=== PATIENT | male | born 1960 | race Caucasian/White ===

== ENCOUNTER → 2023-05-08 07:18 | Outpatient (CLI) | payer OTHER, SELFPAY ==
[2023-05-08 08:51] LABS: Alanine Aminotransferase 29 IU/L (<50); Albumin 4.1 g/dL (3.5-5.0); Albumin Globulin Ratio 1.6 (1.0-2.8); Alkaline Phosphatase 54 U/L (38-126); Aspartate Aminotransferase 32 IU/L (17-59); BUN Creatinine Ratio 20.3 (6-22); Bilirubin Total 1.2 mg/dL (0.2-1.3); Blood Urea Nitrogen 16 mg/dL (9-20); Calcium 9.1 mg/dL (8.4-10.2); Carbon Dioxide 28 mmol/L (22-32); Chloride 101 mmol/L (98-107); Cholesterol 172 mg/dL (140-199); Estimated Glomerular Filt Rate > 60 mL/min (>60); Globulin 2.6 g/dL (1.7-4.1); Glucose 100 mg/dL (80-110); HDL Cholesterol 43 mg/dL (40-60); HEMOLYSIS < 15 (0-50); LDL Cholesterol Calculated 114 mg/dL (<100); Potassium 4.1 mmol/L (3.4-5.1); Sodium 136 mmol/L (137-145); Total Protein 6.7 g/dL (6.3-8.2); Triglycerides 75 mg/dL (35-150)
== END ==
PROVIDERS: PCP Nurse Practitioner; Referring Provider Family Medicine; Visit Provider Family Medicine
DX: E78.5 Hyperlipidemia, unspecified (principal); R73.01 Impaired fasting glucose
CPT/HCPCS: 36415; 80053; 80061

== ENCOUNTER → 2023-06-12 11:25 | Outpatient (CLI) | payer OTHER, SELFPAY ==
[2023-06-13 14:39] LABS: Fecal Immunochemical Test Negative (Negative)
== END ==
PROVIDERS: PCP Nurse Practitioner; Referring Provider Nurse Practitioner; Visit Provider Nurse Practitioner
DX: Z12.11 Encounter for screening for malignant neoplasm of colon (principal)
CPT/HCPCS: 82274

== ENCOUNTER → 2024-04-27 09:17 | Outpatient (CLI) | payer OTHER, SELFPAY ==
[2024-04-27 10:12] LABS: Add Manual Diff / Slide Review NO; Basophils Absolute Auto 0 /uL (0-100); Basophils Percent Auto 0.7 % (0-2); Eosinophils Absolute Auto 100 /uL (0-450); Eosinophils Percent Auto 3.4 % (2-4); Hematocrit 44.7 % (41-53); Hemoglobin 15.5 g/dL (13.5-17.5); Lymphocytes Absolute Auto 1100 /uL (1100-4500); Lymphocytes Percent Auto 30.3 % (25-40); Mean Corpuscular HGB Conc 34.6 % (30-36); Mean Corpuscular Hemoglobin 31.3 PG (26-34); Mean Corpuscular Volume 90.4 fL (80-100); Monocytes Absolute Auto 300 /uL (0-900); Monocytes Percent Auto 9.5 % (3-14); Neutrophils Absolute Auto 2000 /uL (1500-7000); Neutrophils Percent Auto 56.1 % (50-75); Platelet Count 166 X10^3/uL (150-400); Red Blood Cell Count 4.94 X10^6/uL (4.5-5.9); Red Cell Distribution Width 13.1 % (11.6-14.8); White Blood Cell Count 3.5 X10^3/uL (4.5-11.0)
[2024-04-27 10:29] LABS: HEMOLYSIS < 15 (0-50)
[2024-04-27 10:35] LABS: Alanine Aminotransferase 46 IU/L (<50); Albumin 4.2 g/dL (3.5-5.0); Albumin Globulin Ratio 1.4 (1.0-2.8); Alkaline Phosphatase 64 U/L (38-126); Aspartate Aminotransferase 63 IU/L (17-59); BUN Creatinine Ratio 18.1 (6-22); Bilirubin Total 2.1 mg/dL (0.2-1.3); Blood Urea Nitrogen 15 mg/dL (9-20); Calcium 9.4 mg/dL (8.4-10.2); Carbon Dioxide 29 mmol/L (22-32); Chloride 102 mmol/L (98-107); Cholesterol 173 mg/dL (140-199); Estimated Glomerular Filt Rate > 60 mL/min (>60); Globulin 2.9 g/dL (1.7-4.1); Glucose 104 mg/dL (80-110); HDL Cholesterol 53 mg/dL (40-60); LDL Cholesterol Calculated 106 mg/dL (<100); Sodium 136 mmol/L (137-145); Total Protein 7.1 g/dL (6.3-8.2); Triglycerides 71 mg/dL (35-150)
[2024-04-27 11:03] LABS: TSH w/ Reflex to FT4 2.46 uIU/mL (0.47-4.68)
[2024-04-27 11:25] LABS: HIV 1 & 2 Ab/Ag 4th Gen Combo NEGATIVE (NEGATIVE); Hep C Virus Ab w/Reflex Quant NEGATIVE s/c (NEGATIVE)
[2024-04-27 18:11] LABS: Prostate Specific Antigen Scrn 0.555 ng/mL (0.1-4.0)
== END ==
PROVIDERS: PCP Family Medicine; Referring Provider Family Medicine; Visit Provider Family Medicine
DX: Z00.00 Encounter for general adult medical examination without abnormal findings (principal); K90.41 Non-celiac gluten sensitivity; E73.9 Lactose intolerance, unspecified; Z12.5 Encounter for screening for malignant neoplasm of prostate
CPT/HCPCS: 36415; 80053; 80061; 84443; 85025; 86803; 87389; G0103

== ENCOUNTER 2024-04-29 07:21 | Day surgery (SDC) | payer OTHER, SELFPAY ==
--- NOTE | 2024-04-29 | PATH_ITS ---
[facility] Accession Number: [id number] No. of containers..02 Tissue . 01 Material submitted: . PART A: colon - ASCENDING POLYP PART B: sigmoid colon - SIGMOID POLYP . 01 Diagnosis: Part A: ASCENDING POLYP: Tubular adenoma. . Part B: SIGMOID POLYP: Tubular adenoma. [facility] 05/04/2024 1502 Local . 01 Electronically signed: . Imer Bird MD, Pathologist NPI- [id number] . 01 Gross description: . A. Received in formalin with two patient identifiers and ascending colon polyp, is a single castle to brown soft tissue fragment, 0.9 cm in greatest dimension, submitted in A1. . B. Received in formalin with two patient identifiers and sigmoid polyp, is a single castle soft tissue fragment, 0.3 cm in greatest dimension, submitted in B1. ([id number]) /MRV 05/04/2024 1502 Local . 01 Pathologist provided ICD-10: D12.2, D12.5 . 01 CPT . 643083, 359399 Specimen Comment: A courtesy copy of this report has been sent to [phone] Performed at: [address] [facility] [address] [address], [place], [place] [id number] MD Imer Bird MD Phone: [phone]
[2024-04-29] MEDS: LACTATED RINGERS 1,000 ML 42 ML IV (07:32)
[2024-04-29 07:39] VITALS: BP 125/78; PULSE 66; RESP 17; TEMP 36.3; O2SAT 99
--- NOTE | 2024-04-29 08:07 | P.HP_ITS ---
History of Present Illness History of Present Illness Date Patient Seen: 04/29/24 Time Patient Seen: 08:07 Chief complaint: Screening Colonoscopy Narrative: Marty is a 63-year-old man who presents for colonoscopy. You had one just over 5 years ago with 2 small polyps removed. [facility] Medical History Carpal tunnel syndrome (~1997) Hearing loss, sensorineural, high frequency Tinnitus, bilateral (~2019) Surgical History Skin lesion (~2022) Melanoma in situ (~2001) Family History Father Congestive heart failure Mother Stroke Brother Diabetes mellitus Stroke Social History Smoking Status: Former smoker alcohol intake: current Meds Home Medications and Allergies Home Medications Medication Instructions Recorded Confirmed Type therapeutic multivitamin PO 04/29/23 04/27/24 History ketoconazole 2 % topical cream applic topical 04/27/24 04/27/24 History massage therapy #1 ea 04/27/24 04/27/24 Rx Allergies Allergy/AdvReac Type Severity Reaction Status Date / Time gluten Allergy Abdominal Verified 04/27/24 08:21 Pain Milk Containing Products Allergy Diarrhea Verified 04/27/24 08:21 (Dairy) Exam Vital Signs (past 8 hours): - 04/29/24 07:39 Temperature 97.3 F L Pulse Rate 66 Respiratory Rate 17 Blood Pressure 125/78 Pulse Oximetry 99 Oxygen Delivery Method Room Air Oxygen Delivery Method Room Air Const General: healthy appearing Assessment & Plan Assessment and plan (1) Colon cancer screening: Status: Acute Plan We reviewed the risks and benefits of colonoscopy for colon cancer screening and he would like to proceed. Time-Based Coding :: [TOTAL MINUTES] spent with patient and on the chart (including review of chart, obtaining history, exam, reviewing outside data, placing orders, documenting exam and treatment plan, and counseling patient) on [DATE].
[2024-04-29 08:45] VITALS: BP 98/67; PULSE 54; RESP 12; TEMP 36.2; O2SAT 97
[2024-04-29 08:49] VITALS: BP 105/64; PULSE 50; RESP 12; O2SAT 97
--- NOTE | 2024-04-29 08:53 | PM.OP.COLON ---
Operative Date/Time/Diagnoses Date of procedure: 04/29/24 Time of procedure: 08:53 Pre-op diagnosis: History of polyps Post-op diagnosis: same Procedure & Clinicians Study performed: Colonoscopy Same procedure as scheduled: Yes Surgeon: Krzysztof Patino Procedure Notes Procedure in detail: Surgeon: Krzysztof Patino MD Anesthesia: Chelsea Jackson CRNA Procedure: The patient was brought to the endoscopy suite, placed in left lateral decubitus position. The patient was connected to monitoring devices. A time-out was performed. Sedation was administered. Once the patient was adequately sedated, a digital rectal exam was performed and was normal. The scope was then inserted and advanced to the cecum where the appendiceal orifice was identified and photographed. The scope was then slowly withdrawn over greater than 6 minutes. The mucosa was thoroughly inspected. There was a 5 mm polyp in the ascending colon removed with a cold snare. There was a 5 mm polyp in the sigmoid colon removed with a cold snare. The scope was retroflexed in the rectum. No other abnormalities were identified. The scope was straightened and removed. The patient was awakened and brought to recovery. Scope withdrawal time: 7 minutes Sedation time: 14 minutes EBL: 5 mL Findings: 5 mm polyp in the ascending colon and 5 mm polyp in the sigmoid colon Post-procedure Disposition: PACU
[2024-04-29 08:54] VITALS: BP 102/68; PULSE 50; RESP 12; O2SAT 97
[2024-04-29 09:00] VITALS: BP 109/65; PULSE 50; RESP 16; O2SAT 99
== END 2024-04-29 09:12 | disposition home or self-care (01) ==
PROVIDERS: PCP Family Medicine; Referring Provider Surgery; Visit Provider Surgery
PROC: 0DJD8ZZ Inspection of Lower Intestinal Tract, Via Natural or Artificial Opening Endoscopic (ICD-10-PCS; CPT 45378; principal; 2024-04-29 08:15)
DX: Z12.11 Encounter for screening for malignant neoplasm of colon (principal); Z86.010 Personal history of colon polyps; D12.2 Benign neoplasm of ascending colon; D12.5 Benign neoplasm of sigmoid colon
CPT/HCPCS: 45385; J2704

== ENCOUNTER → 2024-06-08 07:11 | Outpatient (CLI) | payer OTHER, SELFPAY ==
[2024-06-08 08:20] LABS: Prothrombin Time 11.7 SECONDS (9.4-12.5)
[2024-06-08 08:31] LABS: Alanine Aminotransferase 23 IU/L (<50); Albumin 3.6 g/dL (3.5-5.0); Albumin Globulin Ratio 1.3 (1.0-2.8); Alkaline Phosphatase 55 U/L (38-126); Aspartate Aminotransferase 31 IU/L (17-59); Bilirubin Direct 0.1 mg/dL (0.0-0.4); Bilirubin Total 1.1 mg/dL (0.2-1.3); Globulin 2.7 g/dL (1.7-4.1); HEMOLYSIS < 15 (0-50); Total Protein 6.3 g/dL (6.3-8.2)
== END ==
PROVIDERS: PCP Family Medicine; Referring Provider Family Medicine; Visit Provider Family Medicine
DX: R79.89 Other specified abnormal findings of blood chemistry (principal); E80.6 Other disorders of bilirubin metabolism; K90.41 Non-celiac gluten sensitivity; E73.9 Lactose intolerance, unspecified
CPT/HCPCS: 36415; 80076; 82248; 85610

== ENCOUNTER → 2025-05-05 07:45 | Outpatient (CLI) | payer OTHER, SELFPAY ==
[2025-05-05 09:09] LABS: Alanine Aminotransferase 26 IU/L (<50); Albumin 4.0 g/dL (3.5-5.0); Albumin Globulin Ratio 1.5 (1.0-2.8); Alkaline Phosphatase 62 U/L (38-126); Blood Urea Nitrogen 19 mg/dL (9-20); Calcium 9.0 mg/dL (8.4-10.2); Carbon Dioxide 30 mmol/L (22-32); Chloride 102 mmol/L (98-107); Cholesterol 161 mg/dL (140-199); Estimated Glomerular Filt Rate > 60 mL/min (>60); Globulin 2.7 g/dL (1.7-4.1); Glucose 95 mg/dL (70-99); HDL Cholesterol 62 mg/dL (40-60); HEMOLYSIS < 15 (0-50); Potassium 4.6 mmol/L (3.4-5.1); Sodium 137 mmol/L (137-145); Total Protein 6.7 g/dL (6.3-8.2); Triglycerides 40 mg/dL (35-150)
== END ==
PROVIDERS: PCP Family Medicine; Referring Provider Family Medicine; Visit Provider Family Medicine
DX: Z00.00 Encounter for general adult medical examination without abnormal findings (principal); Z12.5 Encounter for screening for malignant neoplasm of prostate
CPT/HCPCS: 36415; 80053; 80061; G0103